=== PATIENT | female | born 1960 | race American Indian/Alaskan Native ===

== ENCOUNTER 2019-11-29 14:39 | Emergency (ER) | payer SELFPAY ==
[2019-11-29 14:49] VITALS: BP 188/93
--- NOTE | 2019-11-29 14:51 | Emergency Department Report ---
Chief Complaint: High BP Stated Complaint: BLOOD PRESSURE CHECK Time Seen by Provider: 11/29/19 14:45 - HPI History of Present Illness: 59 yo female with elevated blood pressure. No previous hx. MSE performed completed. referred to PCP MSE screening note: Focused history and physical exam performed. Due to findings the following was ordered: ED Disposition for MSE Clinical Impression: Encounter for medical screening examination Disposition: MED SCREENING EXAM-LEFT Is pt being admited?: No Does the pt Need Aspirin: No Condition: Stable Referrals: PRIMARY CARE, [Referring] - 3-5 Days
== END 2019-11-29 14:45 | disposition left against medical advice (07) ==
LOC: ED 14:39
DX: I10 Essential (primary) hypertension (principal); Z53.21 Procedure and treatment not carried out due to patient leaving prior to being seen by health care provider
CPT/HCPCS: 99281